=== PATIENT | male | born 1985 | race Caucasian/White ===

== ENCOUNTER 2020-01-25 18:53 | Emergency (ER) | payer SELFPAY ==
[2020-01-25] MEDS ORDERED: KETOROLAC 30 MG/ML INJ ONE (19:50)
[2020-01-25] MEDS ORDERED: HYDROCODONE/APAP 10/325 TAB ONE (19:50)
--- NOTE | 2020-01-25 20:02 | EDPHYS ---
Physician Documentation [facility] Name: Zenon Garcias Age: 34 yrs Sex: Male : 1985 Arrival Date: 01/25/2020 Time: 18:54 Bed 16 Private MD: ED Physician Eddy Keen HPI: 01/24 19:15 This 34 yrs old Male presents to ER via Wheelchair with complaints of Ankle vishal Injury. 19:15 The patient presents with decreased range of motion, pain, that is acute. The vishal complaints affect the right ankle, right ankle and anterior aspect of right ankle. Onset: The symptoms/episode began/occurred just prior to arrival. Context: The problem was sustained outdoors, trampoline. Associated signs and symptoms: The patient has no apparent associated signs or symptoms. Modifying factors: The symptoms are alleviated by nothing, the symptoms are aggravated by weight bearing, movement. Severity of symptoms: At their worst the symptoms were moderate, severe, in the emergency department the symptoms are unchanged. The patient has not experienced similar symptoms in the past. Historical: - Allergies: 18:54 No Known Allergies; sg - Home Meds: 18:54 None [Active]; sg - PMHx: 18:54 None; sg - PSHx: 18:54 None; sg - Immunization history:: Adult Immunizations up to date. - Social history:: Smoking status: Patient denies any tobacco usage or history of. - Family history:: not pertinent. ROS: 19:15 Constitutional: Negative for fever, chills, and weight loss, Eyes: Negative for injury, vishal pain, redness, and discharge, ENT: Negative for injury, pain, and discharge, Neck: Negative for injury, pain, and swelling, Cardiovascular: Negative for chest pain, palpitations, and edema, Respiratory: Negative for shortness of breath, cough, wheezing, and pleuritic chest pain, Abdomen/GI: Negative for abdominal pain, nausea, vomiting, diarrhea, and constipation, Back: Negative for injury and pain, : Negative for injury, bleeding, discharge, and swelling, Skin: Negative for injury, rash, and discoloration, Neuro: Negative for headache, weakness, numbness, tingling, and seizure, Psych: Negative for depression, anxiety, suicide ideation, homicidal ideation, and hallucinations, Allergy/Immunology: Negative for hives, rash, and allergies, Endocrine: Negative for neck swelling, polydipsia, polyuria, polyphagia, and marked weight changes, Hematologic/Lymphatic: Negative for swollen nodes, abnormal bleeding, and unusual bruising. 19:15 MS/extremity: Positive for decreased range of motion, deformity, pain, swelling, tenderness, of the right ankle and anterior aspect of right ankle. Exam: 19:15 Constitutional: This is a well developed, well nourished patient who is awake, alert, vishal and in no acute distress. Head/Face: Normocephalic, atraumatic. Eyes: Pupils equal round and reactive to light, extra-ocular motions intact. Lids and lashes normal. Conjunctiva and sclera are non-icteric and not injected. Cornea within normal limits. Periorbital areas with no swelling, redness, or edema. ENT: Nares patent. No nasal discharge, no septal abnormalities noted. Tympanic membranes are normal and external auditory canals are clear. Oropharynx with no redness, swelling, or masses, exudates, or evidence of obstruction, uvula midline. Mucous membranes moist. Neck: Trachea midline, no thyromegaly or masses palpated, and no cervical lymphadenopathy. Supple, full range of motion without nuchal rigidity, or vertebral point tenderness. No Meningismus. Chest/axilla: Normal chest wall appearance and motion. Nontender with no deformity. No lesions are appreciated. Cardiovascular: Regular rate and rhythm with a normal S1 and S2. No gallops, murmurs, or rubs. Normal PMI, no JVD. No pulse deficits. Respiratory: Lungs have equal breath sounds bilaterally, clear to auscultation and percussion. No rales, rhonchi or wheezes noted. No increased work of breathing, no retractions or nasal flaring. Abdomen/GI: Soft, non-tender, with normal bowel sounds. No distension or tympany. No guarding or rebound. No evidence of tenderness throughout. Back: No spinal tenderness. No costovertebral tenderness. Full range of motion. Male : Normal genitalia with no discharge or lesions. Skin: Warm, dry with normal turgor. Normal color with no rashes, no lesions, and no evidence of cellulitis. Neuro: Awake and alert, GCS 15, oriented to person, place, time, and situation. Cranial nerves II-XII grossly intact. Motor strength 5/5 in all extremities. Sensory grossly intact. Cerebellar exam normal. Normal gait. Psych: Awake, alert, with orientation to person, place and time. Behavior, mood, and affect are within normal limits. 19:15 Musculoskeletal/extremity: Extremities: noted in the right ankle and anterior aspect of right ankle: decreased ROM, pain, swelling, tenderness, decreased ROM, deformity, obvious anterior dislocation, nvi., ROM: limited active range of motion due to pain, limited passive range of motion due to pain, Circulation is intact in all extremities. Sensation intact. Compartment Syndrome exam of affected extremity: is normal. Joints: deformity, dislocation, limited range of motion, pain at rest, tenderness, Weight bearing: is unable to bear weight, DVT Exam: negative Homans' sign noted on exam, no appreciated bluish discoloration, no erythema, no increased warmth, pain, swelling, tenderness. Vital Signs: 18:55 BP 142 / 82; Pulse 87; Resp 18; Temp 97.7; Pulse Ox 100% ; Weight 83.91 kg (R); Height sg 5 ft. 8 in. (172.72 cm); Pain 7/10; 20:00 BP 130 / 73; Pulse 85; Resp 18; Pulse Ox 97% on R/A; vc 18:55 Body Mass Index 28.13 (83.91 kg, 172.72 cm) sg MDM: 19:01 Patient medically screened. vishal 19:18 Data reviewed: vital signs, nurses notes, radiologic studies, plain films. [facility] 19:19 Differential diagnosis: fracture, sprain. Data interpreted: residential program worker: not vishal applicable for this patient encounter. ED course: obvious right ankle anterior dislocation, reduced immediately upon entering the room by me,no iv, done without incident , immediate pain relief. xrays ordered. 20:10 ED course: pt was instructed to be non weight bearing, no driving and follow up dr vishal montanez was mandatory. 01/24 19:13 Order name: Ankle Right 3 View XRAY [facility] 01/24 19:13 Order name: Tib Fib Right XRAY [facility] 01/24 19:13 Order name: Ice pack; Complete Time: 19:57 [facility] 01/24 19:13 Order name: Splint - Ankle: Posterior: well padded; Complete Time: 20:05 [facility] 01/24 19:13 Order name: Crutches; Complete Time: 20:19 [facility] Administered Medications: 19:56 Drug: TORadol 60 mg Route: IM; Site: left deltoid; vc 20:26 Follow up: Response: No adverse reaction; Pain is decreased vc 19:57 Drug: [place] 10 mg-325 mg 1 tabs Route: PO; vc 20:27 Follow up: Response: No adverse reaction; Pain is decreased vc Disposition: 01/25/20 20:01 Discharged to Home. Impression: Dislocation of right ankle joint - reduced, Unspecified fracture of lower end of right tibia - posterior tibia, minimally displaced. - Condition is Stable. - Discharge Instructions: Ankle Fracture, Ankle Fracture, [id number], Closed Reduction for Ankle Fracture or Dislocation, Closed Reduction for Ankle Fracture or Dislocation, Care After. - Prescriptions for Ibuprofen 600 mg Oral Tablet - take 1 tablet by ORAL route every 6 hours As needed take with food; 30 tablet. Tylenol- Codeine #3 300-30 mg Oral Tablet - take 2 tablet by ORAL route every 6 hours As needed; 30 tablet. - Medication Reconciliation Form, Thank You Letter, Antibiotic Education, Prescription Opioid Use form. - Follow up: Private Physician; When: 2 - 3 days; Reason: Recheck today's complaints, Continuance of care, Re-evaluation by your physician. Follow up: Jose Montanez; When: 2 - 3 days; Reason: Recheck today's complaints, Re-evaluation by your physician. - Problem is new. - Symptoms have improved. Signatures: Dispatcher [employer] EDMS Cesar Huggins RN RN sg Anderson, Corey, MD MD cha Calcote, Vanessa, RN RN vc Harris, Amy, RN RN Corrections: (The following items were deleted from the chart) 21:14 20:01 01/25/2020 20:01 Discharged to Home. Impression: Dislocation of right ankle joint ah - reduced; Unspecified fracture of lower end of right tibia - posterior tibia, minimally displaced. Condition is Stable. Discharge Instructions: Ankle Fracture, Ankle Fracture, [id number], Closed Reduction for Ankle Fracture or Dislocation, Closed Reduction for Ankle Fracture or Dislocation, Care After. Prescriptions for Ibuprofen 600 mg Oral Tablet - take 1 tablet by ORAL route every 6 hours As needed take with food; 30 tablet, Tylenol-Codeine #3 300-30 mg Oral Tablet - take 2 tablet by ORAL route every 6 hours As needed; 30 tablet. and Forms are Medication Reconciliation Form, Thank You Letter, Antibiotic Education, Prescription Opioid Use. Follow up: Private Physician; When: 2 - 3 days; Reason: Recheck today's complaints, Continuance of care, Re-evaluation by your physician. Follow up: Jose Montanez; When: 2 - 3 days; Reason: Recheck today's complaints, Re-evaluation by your physician. Problem is new. Symptoms have improved. vishal
--- NOTE | 2020-01-25 20:02 | ER ---
Nurse's Notes [facility] Name: Zenon Garcias Age: 34 yrs Sex: Male : 1985 Arrival Date: 01/25/2020 Time: 18:54 Bed 16 Private MD: Diagnosis: Dislocation of right ankle joint-reduced;Unspecified fracture of lower end of right tibia-posterior tibia, minimally displaced Presentation: 01/24 18:55 Chief complaint: Patient states: Right ankle injury, sustained while jumping on the trampoline about an hour [employer], deformity noted to the right ankle, with swelling. Coronavirus screen: Proceed with normal triage. Ebola Screen: Patient negative for fever greater than or equal to 101.5 degrees Fahrenheit, and additional compatible Ebola Virus Disease symptoms Patient denies exposure to infectious person. Patient denies travel to an Ebola-affected area in the 21 days before illness onset. No symptoms or risks identified at this time. Initial Sepsis Screen: Does the patient meet any 2 criteria? No. Patient's initial sepsis screen is negative. Does the patient have a suspected source of infection? No. Patient's initial sepsis screen is negative. Risk Assessment: Do you want to hurt yourself or someone else? Patient reports no desire to harm self or others. Onset of symptoms was January 25, 2020. Care prior to arrival: None. Mechanism of Injury: Fall while jumping on the trampoline. 18:55 Method Of Arrival: Wheelchair 18:55 Acuity: DARI 3 sg Historical: - Allergies: 18:54 No Known Allergies; - Home Meds: 18:54 None [Active]; sg - PMHx: 18:54 None; sg - PSHx: 18:54 None; sg - Immunization history:: Adult Immunizations up to date. - Social history:: Smoking status: Patient denies any tobacco usage or history of. - Family history:: not pertinent. Screenin:15 Abuse screen: Denies threats or abuse. Nutritional screening: No deficits noted. vc Tuberculosis screening: No symptoms or risk factors identified. Fall Risk None identified. Assessment: 19:15 General: Appears in no apparent distress. uncomfortable, Behavior is calm, cooperative, vc appropriate for age. Pain: Complains of pain in anterior aspect of right ankle and right ankle. Neuro: Level of Consciousness is awake, alert, obeys commands, Oriented to person, place, time, situation. Cardiovascular: Capillary refill < 3 seconds Patient's skin is warm and dry. Respiratory: Airway is patent Respiratory effort is even, unlabored, Respiratory pattern is regular, symmetrical. GI: No signs and/or symptoms were reported involving the gastrointestinal system. : No signs and/or symptoms were reported regarding the genitourinary system. Musculoskeletal: Range of motion: limited in right ankle. 20:15 Reassessment: Patient appears in no apparent distress at this time. Patient and/or vc family updated on plan of care and expected duration. Pain level reassessed. Patient states feeling better. Vital Signs: 18:55 BP 142 / 82; Pulse 87; Resp 18; Temp 97.7; Pulse Ox 100% ; Weight 83.91 kg (R); Height sg 5 ft. 8 in. (172.72 cm); Pain 7/10; 20:00 BP 130 / 73; Pulse 85; Resp 18; Pulse Ox 97% on R/A; vc 18:55 Body Mass Index 28.13 (83.91 kg, 172.72 cm) ED Course: 18:54 Patient arrived in ED. sg 18:55 Arm band placed on. sg 18:57 Triage completed. sg 19:00 Bed in low position. Pulse ox on. NIBP on. vc 19:01 Eddy Keen MD is Attending Physician. [facility] 19:22 Jenniffer Finley, DIONNE is Primary Nurse. vc 19:55 No provider procedures requiring assistance completed. Assist provider with fracture vc care of right ankle Fracture is closed. Circulation, motor and sensation is intact. Performed by Eddy Keen MD Reduced with physical manipulation. Immobilized with OCL splint, Patient tolerated well. Patient did not have IV access during this emergency room visit. 19:58 Jose Silva MD is Referral Physician. vishal 20:00 Crutch training done. Ramiro wrap to right ankle Orthoglass splint: Posterior short lleg jp3 splint applied on right leg. 20:20 Ankle Right 3 View XRAY In Process Unspecified. EDMS 20:20 Tib Fib Right XRAY In Process Unspecified. EDMS Administered Medications: 19:56 Drug: TORadol 60 mg Route: IM; Site: left deltoid; vc 20:26 Follow up: Response: No adverse reaction; Pain is decreased vc 19:57 Drug: [place] 10 mg-325 mg 1 tabs Route: PO; vc 20:27 Follow up: Response: No adverse reaction; Pain is decreased Outcome: 20:01 Discharge ordered by . vishal 20:25 Discharged to home ambulatory, with crutches. 20:25 Condition: good 20:25 Discharge instructions given to patient, Instructed on discharge instructions, follow up and referral plans. no drinking with medication, no driving heavy equipment, medication usage, Demonstrated understanding of instructions, follow-up care, medications, Prescriptions given X 2. 21:14 Patient left the ED. Signatures: Dispatcher [employer] EDMS Cesar Huggins RN RN Eddy Parker MD MD cha Pisarski, Jacob [id number] Jenniffer Finley RN RN vc Harris, Amy, RN RN Corrections: (The following items were deleted from the chart) 18:57 18:55 Acuity: DARI 4 sg paul
--- NOTE | 2020-01-25 20:45 | RAD REPORT ---
EXAM DESCRIPTION: RAD - Ankle Right 3 View - 01/25/2020 8:20 pm CLINICAL HISTORY: Right ankle pain FINDINGS: No fracture or dislocation is seen.
--- NOTE | 2020-01-25 20:46 | RAD REPORT ---
EXAM DESCRIPTION: RAD - Tib Fib Right - 01/25/2020 8:20 pm CLINICAL HISTORY: Right leg pain FINDINGS: No fracture is seen
[2020-01-25 21:21] VITALS: TEMP 97.7
[2020-01-25 21:22] VITALS: BP 130/73; O2SAT 97
== END 2020-01-25 21:14 | disposition home or self-care (01) ==
LOC: ER 18:53
PROC: 2W3QX1Z Immobilization of Right Lower Leg using Splint (ICD-10-PCS; principal; 2020-01-25)
DX: S82.301A Unspecified fracture of lower end of right tibia, initial encounter for closed fracture (principal); Y93.44 Activity, trampolining; Y92.89 Other specified places as the place of occurrence of the external cause
CPT/HCPCS: 96372; 99284